=== PATIENT | male | born 1975 | race Caucasian/White ===

== ENCOUNTER 2018-01-08 23:13 | Emergency (ER) | payer SELFPAY ==
[~2018-01-08] VITALS: Ht 175.3 cm; Wt 86.2 kg
[~2018-01-08 23:13] MED LIST: NAPR-514 PO; TRAM50TA PO
[2018-01-08] MEDS: KETAMINE HCL 500 MG/10 ML VIAL. IM ONE (23:18)
[2018-01-09] LABS: BASO # 0.1 x10^3/uL (0.0-0.2); BASO % 1 % (0-3); EOS # 0.2 x10^3/uL (0.0-0.7); EOS % 2 % (0-3); HEMATOCRIT 43.8 % (39.0-53.0); HEMOGLOBIN 15.1 g/dL (13.0-17.5); LYMPH # 3.8 x10^3/uL (1.0-4.8); LYMPH % 41 % (24-48); MEAN CORPUSCULAR HEMOGLOBIN 32 pg (25-35); MEAN CORPUSCULAR HGB CONC 34 g/dL (31-37); MEAN CORPUSCULAR VOLUME 93 fL (79-100); MONO # 0.6 x10^3/uL (0.0-1.1); MONO % 6 % (0-9); NEUT # 4.7 x10^3uL (1.8-7.7); NEUT % 51 % (31-73); PLATELET COUNT 175 x10^3/uL (140-400); RED BLOOD COUNT 4.71 x10^6/uL (4.30-5.70); RED CELL DISTRIBUTION WIDTH 14.2 % (11.5-14.5); WHITE BLOOD COUNT 9.4 x10^3/uL (4.0-11.0)
[2018-01-09] MEDS: IV NORMAL SALINE 1,000ML 1,000 ML IV ONE ×2 (00:07→00:59)
[2018-01-09 00:08] LABS: CREATININE 0.7 mg/dL (0.7-1.3); GFR 124.3; POTASSIUM 3.6 mmol/L (3.5-5.1)
[2018-01-09 00:15] LABS: ETHANOL 327 mg/dL (0-10); SALIC 6.2 mg/dL (2.8-20.0)
[2018-01-09 00:16] LABS: ACETAMIN < 2.0 mcg/mL (10-30)
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
[2018-01-09] MEDS: HALOPERIDOL LACT 5 MG/ML VIAL. IVP ONE (02:34)
[2018-01-09 04:57] LABS: BARBITURATES NEG (NEG); BENZODIAZEPINES POS (NEG); CANNABINOIDS NEG (NEG); COCAINE NEG (NEG); METHADONE NEG (NEG); OPIATES NEG (NEG); PHENCYCLIDINE NEG (NEG)
[2018-01-09 04:58] LABS: AMPHETAMINE/METHAMPHETAMINE NEG (NEG)
[2018-01-09 05:03] LABS: BILIRUBIN,URINE NEG (NEG); CLARITY,URINE CLEAR; COLOR,URINE YELLOW; GLUCOSE,URINE NEG (NEG); NITRITE,URINE NEG (NEG); RBC,URINE 0 /HPF (0-2); UROBILINOGEN,URINE 0.2 mg/dL (0.2 mg/dL)
[2018-01-09 05:04] LABS: BACTERIA,URINE 0 /HPF (0-FEW); SQUAMOUS EPITHELIAL CELL,UR OCC /LPF; WBC,URINE RARE /HPF (0-4)
[2018-01-09 07:30] VITALS: BP 117/71
== END 2018-01-09 07:35 | disposition home or self-care (01) ==
LOC: ER 23:13
DX: F10.129 Alcohol abuse with intoxication, unspecified (principal); R45.851 Suicidal ideations; F17.200 Nicotine dependence, unspecified, uncomplicated; F12.10 Cannabis abuse, uncomplicated; Z88.0 Allergy status to penicillin; Z91.013 Allergy to seafood
CPT/HCPCS: 36415; 80048; 80307; 81001; 85025; 96372; 96374; 99284; G0480; G6039; J1630; J3490; 82003; G0479; J7030

== ENCOUNTER 2020-07-18 23:13 | Emergency (ER) | payer SELFPAY ==
[~2020-07-18] VITALS: Ht 175.3 cm; Wt 78.0 kg
[2020-07-18 23:13] VITALS: BP 170/70
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
[2020-07-18] MEDS ORDERED: diphenhydrAMINE 50 MG/ML VIAL IVP ONE (23:45)
[2020-07-18] MEDS ORDERED: CONTRAST GIVEN. MC PRN (23:45)
[2020-07-18] MEDS ORDERED: IV RINGERS SOLUTION,LACTATED 1,000 ML IV SCH (23:45)
[2020-07-18] MEDS ORDERED: MVI, ADULT NO.4 WITH VIT K 10 ML, THIAMINE INJ 100 MG in IV RINGERS SOLUTION,LACTATED 1... IV ONE (23:45)
[2020-07-18] MEDS ORDERED: IOHEXOL 300 MG/ML 75 ML VIAL. IV ONE (23:45)
[2020-07-18] MEDS ORDERED: methylPREDNISolone SOD SUCC PF 125 MG/2 ML VIAL. IV ONE (23:45)
[2020-07-19 00:04] LABS: BASO # 0.1 x10^3/uL (0.0-0.2); BASO % 1 % (0-3); EOS % 0 % (0-3); HEMATOCRIT 47.2 % (39.0-53.0); HEMOGLOBIN 15.7 g/dL (13.0-17.5); LYMPH # 3.3 x10^3/uL (1.0-4.8); LYMPH % 29 % (24-48); MEAN CORPUSCULAR HEMOGLOBIN 33 pg (25-35); MEAN CORPUSCULAR HGB CONC 33 g/dL (31-37); MEAN CORPUSCULAR VOLUME 99 fL (79-100); MONO # 0.6 x10^3/uL (0.0-1.1); MONO % 6 % (0-9); NEUT # 7.4 x10^3uL (1.8-7.7); NEUT % 65 % (31-73); PLATELET COUNT 249 x10^3/uL (140-400); RED BLOOD COUNT 4.78 x10^6/uL (4.30-5.70); RED CELL DISTRIBUTION WIDTH 13.8 % (11.5-14.5); WHITE BLOOD COUNT 11.4 x10^3/uL (4.0-11.0)
[2020-07-19 00:13] LABS: CALCIUM 8.6 mg/dL (8.5-10.1); CREATININE 0.8 mg/dL (0.7-1.3); POTASSIUM 3.8 mmol/L (3.5-5.1)
[2020-07-19 00:13] LABS: BACTERIA,URINE 0 /HPF (0-FEW); BARBITURATES NEG (NEG); BENZODIAZEPINES NEG (NEG); BILIRUBIN,URINE NEG (NEG); CANNABINOIDS POS (NEG); CLARITY,URINE CLEAR; COCAINE POS (NEG); COLOR,URINE YELLOW; GLUCOSE,URINE NEG (NEG); METHADONE NEG (NEG); NITRITE,URINE NEG (NEG); OPIATES NEG (NEG); PHENCYCLIDINE NEG (NEG); RBC,URINE OCC /HPF (0-2); SQUAMOUS EPITHELIAL CELL,UR OCC /LPF; UROBILINOGEN,URINE 0.2 mg/dL (0.2 mg/dL); WBC,URINE OCC /HPF (0-4)
[2020-07-19 00:18] LABS: AMPHETAMINE/METHAMPHETAMINE NEG (NEG)
[2020-07-19 00:24] LABS: ALBUMIN 4.1 g/dL (3.4-5.0); DIRECT BILIRUBIN 0.1 mg/dL (0.0-0.2); MAGNESIUM 2.3 mg/dL (1.8-2.4); TOTAL BILIRUBIN 0.3 mg/dL (0.2-1.0); TOTAL PROTEIN 8.3 g/dL (6.4-8.2)
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
[2020-07-19] MEDS ORDERED: CLIN300C8 PO (01:43)
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
--- NOTE | 2020-07-19 08:34 | EKG ---
[address] [address] Test Date: 2020-07-19 Test Time: 00:54:59 Pat Name: RENUKA BAILEY Department: Room: Gender: M Regulatory And Compliance Technician: MEAGHAN : 1975 Requested By: ROSIE CEJA Order Number: [id number] Reading MD: Measurements Intervals [place] Rate: 91 P: 81 UT: 140 QRS: 82 QRSD: 98 T: 78 QT: 376 QTc: 470 Interpretive Statements SINUS RHYTHM OTHERWISE NORMAL ECG RI6.02 No previous ECG available for comparison
== END 2020-07-19 03:05 | disposition home or self-care (01) ==
LOC: ER 23:13
DX: S02.2XXA Fracture of nasal bones, initial encounter for closed fracture (principal); S00.93XA Contusion of unspecified part of head, initial encounter; S20.211A Contusion of right front wall of thorax, initial encounter; S50.12XA Contusion of left forearm, initial encounter; S50.11XA Contusion of right forearm, initial encounter; F10.229 Alcohol dependence with intoxication, unspecified; F19.10 Other psychoactive substance abuse, uncomplicated; R79.1 Abnormal coagulation profile; J32.4 Chronic pansinusitis; M25.562 Pain in left knee; M25.561 Pain in right knee; F17.210 Nicotine dependence, cigarettes, uncomplicated; F12.10 Cannabis abuse, uncomplicated; F14.10 Cocaine abuse, uncomplicated; Z88.0 Allergy status to penicillin; Z91.013 Allergy to seafood; Y90.8 Blood alcohol level of 240 mg/100 ml or more; V98.8XXA Other specified transport accidents, initial encounter; Y93.89 Activity, other specified; Y92.89 Other specified places as the place of occurrence of the external cause; Y99.8 Other external cause status
CPT/HCPCS: 36415; 70450; 70486; 71045; 71260; 72125; 73564; 74177; 80048; 80076; 80307; 81001; 82550; 83690; 83735; 83880; 84484; 85025; 85379; 85610; 85730; 86850; 86900; 86901; 87086; 93005; 96365; 96366; 96375; 99285; G0480; J1200; J2930; J7120; Q9967

== ENCOUNTER 2020-11-01 12:25 | Emergency (ER) | payer SELFPAY ==
[~2020-11-01] VITALS: Ht 175.3 cm; Wt 78.0 kg
[~2020-11-01 12:25] MED LIST changes: +CLIN300C9 PO
[2020-11-01 12:42] VITALS: BP 139/94
[2020-11-01] MEDS ORDERED: HYDROcodone/APAP 5/325MG 1 TAB TABLET PO ONE (13:00)
--- NOTE | 2020-11-01 13:17 | PHYS DOC ---
Past History Past Medical History: Alcoholism, Bronchitis Past Surgical History: No Surgical History Smoking: Cigarettes, Greater than 1 pack/day Alcohol Use: Heavy Drug Use: Cocaine, Marijuana General Adult EDM: Chief Complaint: LOWEREXTREMITY INJURY HPI: HPI: Patient is a 45-year-old male who presents with left, lateral knee pain. Patient states that it burn barrel fell on his leg yesterday. Patient states he woke up this morning with an increase in pain. Pain is worse with walking. Patient is still able to bear weight and ambulate. Range of motion is intact. Patient reports taking ibuprofen with little relief. Patient has history of hypertension, COPD. Review of Systems: Review of Systems: Constitutional: Denies fever or chills Eyes: Denies change in visual acuity HENT: Denies nasal congestion or sore throat Respiratory: Denies cough or shortness of breath Cardiovascular: Denies chest pain or edema GI: Denies abdominal pain, nausea, vomiting, bloody stools or diarrhea : Denies dysuria Musculoskeletal: Reports left lateral knee pain Integument: Denies rash Neurologic: Denies headache, focal weakness or sensory changes Endocrine: Denies polyuria or polydipsia Lymphatic: Denies swollen glands Psychiatric: Denies depression or anxiety Current Medications: Current Meds: Current Medications Medications (Trade) Dose Ordered Sig/Sanjay Start Time Stop Time Status Last Admin Dose Admin Acetaminophen/ Hydrocodone Bitart (Lortab 5/325) 1 tab 1X ONCE 11/01/20 13:00 11/01/20 13:07 [place] Allergies: Allergies: Allergies Coded Allergies Type Severity Reaction Last Updated Verified Fish Containing Products Allergy Intermediate 03/17/15 Yes Penicillins Allergy Intermediate 03/17/15 No Physical Exam: PE: Constitutional: Well developed, well nourished, no acute distress, non-toxic appearance. [] HENT: Normocephalic, atraumatic, bilateral external ears normal, oropharynx moist, no oral exudates, nose normal. [] Eyes: PERRLA, EOMI, conjunctiva normal, no discharge. [] Neck: Normal range of motion, no tenderness, supple, no stridor. [] Cardiovascular:Heart rate regular rhythm, no murmur [] Lungs & Thorax: Bilateral breath sounds clear to auscultation [] Abdomen: Bowel sounds normal, soft, no tenderness, no masses, no pulsatile masses. [] Skin: Warm, dry, no erythema, no rash. [] Back: No tenderness, no CVA tenderness. [] Extremities: Tenderness to left lateral knee, ROM intact, no edema. [] Neurologic: Alert and oriented X 3, normal motor function, normal sensory function, no focal deficits noted. [] Psychologic: Affect normal, judgement normal, mood normal. [] Current Patient Data: Vital Signs: Vital Signs Date Time Temp Pulse Resp B/P (MAP) Pulse Ox O2 Delivery O2 Flow Rate FiO2 11/01/20 12:42 101 18 139/94 (109) 98 EKG: EKG: [] Radiology/Procedures: Radiology/Procedures: []Left knee 4 views. HISTORY: Barrel fell on knee, pain 3 views were taken of the left knee. There is not evidence of an acute fracture or joint effusion or osseous abnormality. IMPRESSION: 1. No acute fracture noted in the left knee. Electronically signed by: Clifton Rust MD (11/01/2020 1:23 PM) [facility] Heart Score: C/O Chest Pain: No Risk Factors: Risk Factors: DM, Current or recent (<one month) smoker, HTN, HLP, family history of CAD, obesity. Risk Scores: Score 0 - 3: 2.5% MACE over next 6 weeks - Discharge Home Score 4 - 6: 20.3% MACE over next 6 weeks - Admit for Clinical Observation Score 7 - 10: 72.7% MACE over next 6 weeks - Early Invasive Strategies Course & Med Decision Making: Course & Med Decision Making Pertinent Labs and Imaging studies reviewed. (See chart for details) [] X-ray ordered to rule out fracture left knee. Hydrocodone given for pain. X-rays negative for fracture. Prateek bandage applied to knee. Rice instructions given. Ibuprofen, ice at home for discomfort. Patient instructed to follow-up with PCP or return to the emergency room with worsening symptoms or concerns. Quentin Disclaimer: Quentin Disclaimer: This electronic medical record was generated, in whole or in part, using a voice recognition dictation system. Departure Departure: Impression: Primary Impression: Knee injury Qualified Codes: S89.92XA - Unspecified injury of left lower leg, initial encounter Disposition: 01 DC HOME SELF CARE/HOMELESS Condition: STABLE Referrals: ELVA MASSEY (PCP) Patient Instructions: RICE - Routine Care for Injuries, [id number] Additional Instructions: You were seen in the emergency room today for left knee pain. X-rays were negative for fracture. Rest, ice, knee brace, and elevate leg. Take ibuprofen at home for discomfort.If you continue to have pain and discomfort please follow-up with your PCP for further evaluation. If your symptoms worsen please return to the emergency room. EMERGENCY DEPARTMENT GENERAL DISCHARGE INSTRUCTIONS Thank you for coming to [facility] (ED) today and trusting us with you care. We trust that you had a positivie experience in our Emergency Department. If you wish to speak to the department management, you may call the director at [phone]. YOUR FOLLOW UP INSTRUCTIONS ARE FOLLOWS: 1. Do you have a private Doctor? If you do not have a private doctor, please ask for a resource list of physicians or clinics that may be able to assist you with follow up care. 2. The Emergency Physician has interpreted your x-rays. The X-Ray specialist will also review them. If there is a change in the findings, you will be notified in 48 hours when at all possible. 3. A lab test or culture has been done, your results will be reviewed and you will be notified if you need a change in treatment. ADDITIONAL INSTRUCTIONS AND INFORMATION: 1. Your care today has been supervised by a physician who is specially trained in emergency care. Many problems require more than one evaluation for a complete diagnosis and treatment. We recommend that you schedule your follow up appointment as recommended to ensure complete treatment of you illness or injury. If you are unable to obtain follow up care and continue to have a problem, or if your condition worsens, we recommend that you return to the ED. 2. We are not able to safely determine your condition over the phone nor are we able to give sound medical advice over the phone. For these safety reasons, if you call for medical advice we will ask you to come to the ED for further evaluation. 3. If you have any questions regarding these discharge instructions please call the ED at [phone]. SAFETY INFORMATION: In the interest of safety, wellness, and injury prevention; we encourage you to wear your sealbelt, if you smoke; quite smoking, and we encourage family to use a protective helmet for bicycling and other sporting events that present an increased risk for head injury. IF YOUR SYMPTOMS WORSEN OR NEW SYMPTOMS DEVELOP, OR YOU HAVE CONCERNS ABOUT YOUR CONDITION; OR IF YOUR CONDITION WORSENS WHILE YOU ARE WAITING FOR YOUR FOLLOW UP APPOINTMENT; EITHER CONTACT YOUR PRIMARY CARE DOCTOR, THE PHYSICIAN WHOSE NAME AND NUMBER YOU WERE GIVEN, OR RETURN TO THE ED IMMEDIATELY. SHA ESCAMILLA APRN Nov 01, 2020 13:17
--- NOTE | 2020-11-01 13:25 | RAD ---
Left knee 4 views. HISTORY: Barrel fell on knee, pain 3 views were taken of the left knee. There is not evidence of an acute fracture or joint effusion or osseous abnormality. IMPRESSION: 1. No acute fracture noted in the left knee. Electronically signed by: Clifton Rust MD (11/01/2020 1:23 PM) [facility]
== END 2020-11-01 13:50 ==
LOC: ER 12:25
DX: S89.81XA Other specified injuries of right lower leg, initial encounter (principal); R20.8 Other disturbances of skin sensation; J42 Unspecified chronic bronchitis; F10.10 Alcohol abuse, uncomplicated; F12.90 Cannabis use, unspecified, uncomplicated; F14.90 Cocaine use, unspecified, uncomplicated; F17.210 Nicotine dependence, cigarettes, uncomplicated; Z91.013 Allergy to seafood; W18.39XA Other fall on same level, initial encounter; Y93.89 Activity, other specified; Y92.89 Other specified places as the place of occurrence of the external cause; Y99.8 Other external cause status
CPT/HCPCS: 73564; 99283

== ENCOUNTER 2021-02-27 23:17 | Emergency (ER) | payer SELFPAY ==
[~2021-02-27] VITALS: Ht 175.3 cm; Wt 78.0 kg
[2021-02-27] MEDS: DEXAMETHASONE 4 MG TABLET PO ONE ×2 (23:45→23:48)
[2021-02-27] MEDS ORDERED: diphenhydrAMINE HCL 25 MG CAPSULE PO ONE (23:45)
--- NOTE | 2021-02-28 00:13 | PHYS DOC ---
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 States he was at home earlier, feeding his cat and thought he was feeding it chicken of the can but it was tuna and he liked his finger. States that he immediately called EMS to bring him in because he was sure he could have allergic reaction. En route EMS gave him 50 mg of Benadryl and nothing else. Patient states that since he left his house he is actually had no symptoms. Denies any headache, changes in vision, swelling of the mouth or oropharynx, pain or trouble swallowing, chest pain, shortness of breath, abdominal pain, nausea, vomiting or diarrhea. States he feels otherwise well and actually would prefer to just go on home. Review of Systems Review of Systems Review of systems otherwise unremarkable except noted in HPI Current Medications Current Medications Current Medications Medications (Trade) Dose Ordered Sig/Sanjay Start Time Stop Time Status Last Admin Dose Admin Dexamethasone (Decadron) 10 mg 1X ONCE 02/27/21 23:45 02/27/21 23:46 [place] Diphenhydramine HCl (Benadryl) 50 mg 1X ONCE 02/27/21 23:45 02/27/21 23:46 [place] Allergies Allergies Allergies Coded Allergies Type Severity Reaction Last Updated Verified Fish Containing Products Allergy Intermediate 03/17/15 Yes Penicillins Allergy Intermediate 03/17/15 No Physical Exam Physical Exam Constitutional: Well developed, well nourished, no acute distress, non-toxic appearance. [] HENT: Normocephalic, atraumatic, bilateral external ears normal, oropharynx moist, no oral exudates, nose normal. [] Eyes: PERRLA, EOMI, conjunctiva normal, no discharge. [] Neck: Normal range of motion, no tenderness, supple, no stridor. [] Cardiovascular:Heart rate regular rhythm, no murmur [] Lungs & Thorax: Bilateral breath sounds clear to auscultation [] Abdomen: Bowel sounds normal, soft, no tenderness, no masses, no pulsatile masses. [] Skin: Warm, dry, no erythema, no rash. [] Back: No tenderness, no CVA tenderness. [] Extremities: No tenderness, no cyanosis, no clubbing, ROM intact, no edema. [] Neurologic: Alert and oriented X 3, normal motor function, normal sensory function, no focal deficits noted. [] Psychologic: Affect normal, judgement normal, mood normal. [] Current Patient Data Vital Signs Vital Signs Date Time Temp Pulse Resp B/P (MAP) Pulse Ox O2 Delivery O2 Flow Rate FiO2 02/27/21 23:17 98.3 83 20 139/94 94 Room Air EKG EKG [] Radiology/Procedures Radiology/Procedures [] Heart Score C/O Chest Pain: No Risk Factors: Risk Factors: DM, Current or recent (<one month) smoker, HTN, HLP, family history of CAD, obesity. Risk Scores: Risk Factors: DM, Current or recent (<one month) smoker, HTN, HLP, family history of CAD, obesity. Course & Med Decision Making Course & Med Decision Making Patient is a 45-year-old male who presents with concern for allergic reaction Vital signs not concerning. Physical exam noted above. Offered Benadryl and de xamethasone but patient declined stating he feels fine and does not think he requires him. States that he does not think he is having any allergic reaction as is been about 2 hours and he would prefer to just gone home. Advised to be careful around triggers. Advised to call primary care physician in the morning as needed. Gave strict return precautions to the ED. Patient grateful, verbalized understanding and agreed with plan of discharge. [] Dragon Disclaimer Dragon Disclaimer This electronic medical record was generated, in whole or in part, using a voice recognition dictation system. Departure Departure: Impression: Primary Impression: Allergic reaction Disposition: HOME / SELF CARE / HOMELESS Condition: GOOD Referrals: ELVA MASSEY (PCP) Patient Instructions: Food Allergy and Anaphylaxis Additional Instructions: Thank you for coming into the emergency department tonight and allowing us to take care of you. Please read all the attached information very carefully to go back over what we discussed. Please be careful to stay away from any triggers. Please call your primary care in the morning to discuss your ED visit and need for follow-up visits and need for carrying a EpiPen around with you. Please come back to the ED with new or concerning symptoms as discussed. CONDRA,IESHA W MD Feb 28, 2021 00:13
[2021-02-28 00:20] VITALS: BP 121/68
== END 2021-02-28 00:35 | disposition home or self-care (01) ==
LOC: ER 23:17
DX: T78.40XA Allergy, unspecified, initial encounter (principal); F10.20 Alcohol dependence, uncomplicated; F17.210 Nicotine dependence, cigarettes, uncomplicated; Z88.0 Allergy status to penicillin; Z91.013 Allergy to seafood; X58.XXXA Exposure to other specified factors, initial encounter; Y90.9 Presence of alcohol in blood, level not specified
CPT/HCPCS: 99283; J8540